=== PATIENT | male | born 1990 | race African-American/Black ===

== ENCOUNTER 2017-03-06 13:02 | Inpatient (IN) ==
--- NOTE | 2017-03-06 13:56 | Emergency Department Note ---
Denis Falk Mantricia, am scribing for, and in the presence of, Bolivar Cespedes MD 13:49. Rubina Falk James D, MD, personally performed the services described in this documentation, ascribed by Aiyana Barrios in my presence, and it is both accurate and complete [id number] . Arrival - Arrival Chief Complaint: Non-Specific Stated Complaint: kidneys. sent by dr. ED Nursing Triage Note: pt states was sent by a clinic to the er for "his kidneys" pt is unable to tell me what clinic or what is wrong with kidneys. pt [facility] yesterday adn given bp meds Mode of Arrival: Ambulatory Limitations: No Limitations Source: Patient Time Seen by Provider: 03/06/17 13:41 - History of Present Illness HPI Narrative: Pt is a 26 y/o black male arriving to ED unsure as to what his complaint is. He states that he was seen at [facility] yesterday and blood work was taken. He states that he got a call from the nurse practitioner telling him to come to ED because "something was up with his kidneys." Onset (ago): hour(s) Allergies/Adverse Reactions: Allergies Allergy/AdvReac Type Severity Reaction Status Date / Time No Known Allergies Allergy Unverified 03/06/17 13:30 Home Medications: Home Medications Medication Instructions Recorded Confirmed Type Aspirin EC Tab 81 mg PO DAILY 03/06/17 03/06/17 History amLODIPine [Norvasc] 5 mg PO QAM 03/06/17 03/06/17 History hydroCHLOROthiazide 12.5 mg PO QAM 03/06/17 03/06/17 History [Hydrochlorothiazide] Review of System - Review of System ROS unobtainable: other (referred here but unsure why) Medical,Surgical,& Family Hx - Medical History Cardio: History of: Hypertension - Social History Smoking Status: Never smoker Frequency of Alcohol Use: None Type of Drug Use: None Exam Physical Examination: GENERAL: This is a well-nourished, well-developed male in no apparent distress. VITAL SIGNS: HEENT: Head is normocephalic and atraumatic. Pupils are equally round and reactive to light. Extraocular movement are intact. Oropharynx is benign with moist mucous membranes. NECK: Neck is soft and supple without tenderness. There are no masses. There is no lymphadenopathy. LUNGS: Lungs are clear to auscultation bilaterally. Chest rises symmetrically. There is no chest wall tenderness. CV: Heart is regular rate and rhythm without murmurs, rubs, or gallops. ABDOMEN: Abdomen is soft, non-tender to palpation. There are no abnormal masses palpated. There is no organomegaly. Bowel sounds are present and active. SKIN: Skin is warm and dry. No rash. EXTREMITIES: Patient has full range of motion without tenderness. There is no pedal edema. NEUROLOGIC: Awake, alert, and oriented x4. Cranial nerves II through XII are grossly intact. There are no motorsensory deficits. PSYCHIATRIC: Normal affect. Normal mood. Vital Signs: Vital Signs Temperature 98.5 F 03/06/17 13:42 Pulse Rate 91 H 03/06/17 15:17 Respiratory Rate 28 H 03/06/17 15:17 Blood Pressure 185/133 03/06/17 15:17 O2 Sat by Pulse Oximetry 100 03/06/17 15:17 Course - Consultations Consultation #1: Discussed with hospitalist. Patient will be admitted to their service. Time: 14:59 Results - Labs CBC & BMP: 03/06/17 13:48 03/06/17 13:48 Lab Results: I have reviewed the patients labs - EKG EKG results: interpreted by ERMD - Impressions EKG: Normal sinus rhythm with rate of 84, nonspecific ST-T wave changes. - Diagnostic Findings Procedure: Chest x-ray: image reviewed by me, Ultrasound: report reviewed by me (No evidence of hydronephrosis. Bilateral medical renal disease.) Disposition Clinical Impression: Essential (primary) hypertension, Hyponatremia, Acute renal failure Case discussed with: patient, patient's family Disposition: Still a Patient Condition: Stable Time of Disposition: 13:56
[2017-03-06 14:10] LABS: Apearance,Urine Slightly Hazy (Clear); Bacteria,Urine Occasional /HPF (Few); Bilirubin,Urine Negative (Negative); Blood, Urine Moderate mg/dL (Negative); Glucose,Urine (UA) Negative (Negative); Ketones,Urine Negative (Negative); Mucus,Urine Occasional /LPF (Occasional); Nitrite,Urine Negative (Negative); Protein,Urine 100 MG/DL; RBC,Urine 1 /HPF (0-4); Squamous Epithelial Cell,Urine Occasional /HPF (0-10); Urine Color Yellow (Yellow); Urine Specific Gravity 1.011 (1.001-1.035); Urine Urobilinogen < 2.0 EU/DL (0.2-1.0); WBC,Urine 1 /HPF (0-6)
[2017-03-06 14:20] LABS: Basophils # 0.1 10*3/uL (0.0-0.2); Basophils % 0.4 % (0.0-0.8); Eosinophils # 0.1 10*3/uL (0.0-0.87); Eosinophils % 0.3 % (0.00-10.9); Hemoglobin 14.4 GM/DL (14.0-18.0); Immature Granulocytes % 1.7 %; Lymphocytes % 8.3 % (21.2-54.2); Mean Corpuscular HGB Conc 37.3 GM/DL (32-36); Mean Corpuscular Hemoglobin 28 PG (27-34); Mean Corpuscular Volume 73.8 FL (87-102); Monocytes # 2.3 10*3/uL (0.11-0.8); Monocytes % 6.4 % (1.7-12.7); Neutrophils % 82.9 % (38.7-73.9); Platelet Count 201 T/CUMM (130-400); Red Blood Count 5.23 MC/CUMM (3.8-5.5); Red Cell Distribution Width 14.9 % (9.3-17.3); White Blood Count 36.2 T/CUMM (4-12)
[2017-03-06 14:21] LABS: Hematocrit 38.6 VOL% (42.0-52.0)
[2017-03-06 14:24] LABS: Anisocytosis 1+; Burr Cells Few; Lymphocytes 6 % (20-55); Microcytosis 1+; Ovalocytes Few; Platelet Estimate Adequate; Poikilocytosis 1+; Polychromasia Slight; Segmented Neutrophils 88 % (50-85); Total Cells Counted 100
[2017-03-06 14:29] LABS: Osmolality,Calculated 285.4 MOS/KG (273-304); Potassium 2.6 MMOL/L (3.5-5.1)
[2017-03-06 14:30] LABS: Calcium 5.8 MG/DL (8.5-10.1)
--- NOTE | 2017-03-06 14:42 | Ultrasound Report ---
Exam: US renal Bilateral Date: 03/06/2017 1:52 PM Indication: Chronic renal failure Comparison: None Findings: Right kidney. 8.4 x 3.1 x 5.8 cm. No hydronephrosis or perinephric fluid collection with mild increased echogenicity present. Normal color flow Left kidney. 8.9 x 4.5 x 5 cm. No hydronephrosis perinephric fluid collections with mild increased echogenicity with normal color flow Impression: 1. Medical renal disease present bilaterally with increased echogenicity without obstruction or stones Ultrasound images were stored and captured PROCEDURE INTERPRETED AT [facility] DEPARTMENT OF RADIOLOGY Final Report Signed by: Dr. González De La Rosa
[2017-03-06 14:57] LABS: Alanine Aminotransferase 23 U/L (16-61); Albumin 2.5 G/DL (3.4-5.0); Alkaline Phosphatase 74 U/L (45-117); Aspartate Amino Transferase 23 U/L (0-37); Bilirubin,Total < 0.39 MG/DL (0.2-1.0); Blood Urea Nitrogen 102 MG/DL (7-18); Calcium 5.9 MG/DL (8.5-10.1); Glucose 112 MG/DL (74-106); Osmolality,Calculated 283.5 MOS/KG (273-304); Potassium 2.6 MMOL/L (3.5-5.1); Sodium 125 MMOL/L (136-145); Total Protein 5.4 G/DL (6.4-8.3)
[2017-03-06] MEDS ORDERED: METOPROLOL TARTRATE 5 MG/5 ML VIAL IV STA ×3 (14:58→15:53)
--- NOTE | 2017-03-06 15:32 | EKG Report ---
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
[2017-03-06] MEDS ORDERED: METOPROLOL TARTRATE 5 MG/5 ML VIAL IV ONE ×2 (15:38→15:56)
--- NOTE | 2017-03-06 16:00 | Hospitalist History & Physical ---
<Stephani Garciada - Last Filed: 03/06/17 15:44> Assessment and Plan (1) Leukocytosis Status: Acute Assessment and plan: WBCs were grossly elevated at 36.2. There is no obvious sign of infection. We will conduct a full workup, we will obtain hepatitis panel and HIV panel for review. We will obtain blood cultures Current Visit: Yes (2) Acute renal failure Status: Acute Assessment and plan: Gross elevation in BUN and creatinine noted at the time of encounter. BUN noted at 102 and creatinine noted at 14.40. We will consult nephrology to evaluate. Current Visit: Yes (3) Essential (primary) hypertension Status: Acute Assessment and plan: Patient reports noncompliance with previous antihypertensive regimen. Spoke with patient in great detail regarding the need to adhere to the prescribed medication regimen. He acknowledges a understanding of the need and reports that he plans to be compliant in the future. Current Visit: Yes (4) Hyponatremia Status: Acute Assessment and plan: Sodium noted at 125, we will consult nephrology to evaluate for correction. Current Visit: Yes History of Present Illness Chief complaint: Abnormal labs History of present illness: This is a very unfortunate 26-year-old male that presented to the ED at [facility] for the evaluation of abnormal labs. The patient has a history of hypertension. The patient reports no significant surgical history. The patient reports that he was seen yesterday at a local clinic here in [place] for the evaluation of hypertension. The patient has a history of hypertension however reports that he has not taken meds in over 3 years. He reports that his medications were not discontinued by his physician but he stopped his medications because he felt better. He sought medical attention on yesterday because he had been "not feeling well". He was seen there on yesterday and labs were obtained. On this morning, he was contacted by the clinic staff and told that he needed to report to the ED immediately due to the discrepancies in his labs. At the time of ED presentation. The patient was noted to be grossly hypertensive with a blood pressure noted at 185/133. He was medicated at that time and his blood pressure responded minimally his systolic blood pressure remained above 180. Labs were obtained which reported white blood cell count at 36.2, hemoglobin 14.4, hematocrit 38.6, and platelet count of 201. Chemistry profile was obtained which reported his sodium at 125, potassium is 2.6, chloride at 83, CO2 18, BUN at 102, creatinine at 14.40, calcium of 5.9, total protein of 5.4, albumin at 2.5, and glucose at 112. After brief discussion with both Dr. Cespedes and Dr. Butts, patient will be admitted to the hospitalist services for continuation of care. Due to the severity of the the patient's renal function, we will consult nephrology to evaluate. Home Medications Medication Instructions Recorded Confirmed Type Aspirin EC Tab 81 mg PO DAILY 03/06/17 03/06/17 History amLODIPine [Norvasc] 5 mg PO QAM 03/06/17 03/06/17 History hydroCHLOROthiazide 12.5 mg PO QAM 03/06/17 03/06/17 History [Hydrochlorothiazide] Allergies Allergy/AdvReac Type Severity Reaction Status Date / Time No Known Allergies Allergy Unverified 03/06/17 13:30 Medical,Surgical,& Family Hx - Medical History Cardio: History of: Hypertension - Social History Smoking Status: Never smoker Frequency of Alcohol Use: None Type of Drug Use: None 12 point system: reviewed and no additional remarkable complaints except as stated Exam - Constitutional Vitals: Period Temp Pulse Resp BP Sys/Caldwell Pulse Ox Last 24 Hr 98.5 F-98.5 F 91-101 18-28 170-188/114-138 97-100 General appearance: normal weight, no acute distress - Head Head exam: Present: normal inspection, normocephalic, atraumatic - Eye Eye exam: Present: EOMI. Absent: conjunctival injection Pupils: Present: ANKITA, normal accommodation - ENT ENT exam: Present: normal exam, normal external ear exam, normal oropharynx - Neck Neck exam: Present: normal inspection. Absent: lymphadenopathy, meningismus, tenderness, thyromegaly - Respiratory Respiratory exam: Present: clear to auscultation bilaterally. Absent: rales, rhonchi, stridor, wheezes - Cardiovascular Cardiovascular exam: Present: bradycardia, regular rate and rhythm. Absent: carotid bruit, diastolic murmur, gallop, JVD, systolic murmur, tachycardia - GI/Abdominal GI/Abdominal exam: Present: normal bowel sounds, soft - Extremities Exam Extremities exam: Present: normal inspection, normal capillary refill, full ROM , edema - Back Exam Back exam: Present: normal inspection - Neurological Exam Neurological exam: Present: alert, oriented X3, CN II-XII intact - Psychiatric Psychiatric exam: Present: normal affect, normal mood - Skin Skin exam: Present: normal color, warm, dry Results - Labs CBC & BMP: 03/06/17 13:48 03/06/17 13:48 <Paula Butts - Last Filed: 03/06/17 18:54> History of Present Illness History of present illness: Patient has been seen and examined. I have reviewed the H&P by SHANIKA Garcia, and I agree with the information. Chart reviewed. Active Issues: 1. Hypertensive crises: BP is elevated. He states that he stopped taking lisinopril in 2012. He has MICHAEL, which is multifactorial. Plan is to control blood pressure. Will also obtain TSH and UDS. 2. Leukocytosis: afebrile. So far, there is no source of infection. UA/c-xray are unremarkable. Suspect leukocytosis is from stress reaction from mild volume depletion given recent n/v. Will monitor for now. 3. MICHAEL: multifactorial to include uncontrolled HTN, volume depletion, and NSAID use. Renal ultrasound showed medical renal disease. Nephrology has been consulted. Will obtain urine lytes. Will give gentle fluids. Monitor. 4. Hyponatremia: could be 2nd to volume depletion. Obtain lytes. Gentle fluids. 5. HypoK: will monitor for now 6. Abdominal pain: Patient had periumbilical pain with n/v for the past 3 days. Currently, it has resolved. Will obtain abdominal us and lipase. 7. Cardiomegaly on chest x-ray: obtain echo Exam - Constitutional Vitals: Period Temp Pulse Resp BP Sys/Caldwell Pulse Ox Last 24 Hr 98.5 F-98.5 F 79-101 18-28 162-188/113-138 97-100 Results - Labs CBC & BMP: 03/06/17 13:48 03/06/17 13:48
--- NOTE | 2017-03-06 16:01 | XRay Report ---
Exam: Chest 2 views Date: March 06, 2017 at 3:37 PM Comparison: None Reason: Shortness of breath, acute renal failure, hypertension Findings: The cardiac silhouette is upper normal in size. No focal consolidation, pneumothorax or pleural effusion is identified. No acute osseous process is seen. Impression: 1. The heart is upper normal in size. 2. No acute pulmonary process is identified. PROCEDURE INTERPRETED AT [facility] DEPARTMENT OF RADIOLOGY Final Report Signed by: Dr. Yudi Figueroa
[2017-03-06] MEDS ORDERED: SODIUM CHLORIDE 0.9% 1,000 ML IV SCH (16:34)
[2017-03-06] MEDS ORDERED: hydrALAZINE 20 MG/1 ML VIAL IV PRN ×2 (16:34→18:37)
[2017-03-06] MEDS ORDERED: amLODIPine 10 MG TABLET PO SCH (16:34)
[2017-03-06] MEDS ORDERED: ONDANSETRON 4 MG/2 ML VIAL IV PRN (16:34)
[2017-03-06] MEDS ORDERED: ACETAMINOPHEN 325 MG TABLET PO PRN (16:34)
[2017-03-06] MEDS ORDERED: hydrALAZINE 20 MG/1 ML VIAL ONE (16:40)
[2017-03-06 16:59] LABS: Risk Ratio 4.71; VLDL CHOLESTEROL 57.8 MG/DL
[2017-03-06 17:41] LABS: Hepatitis A Ab IgM Quant 0.08 Index; Hepatitis A Ab IgM Result Negative (Negative); Hepatitis B Core IgM Quant 0.17 Index; Hepatitis B Core IgM Result Negative (Negative); Hepatitis B Surface Ag Quant < 0.10 Index; Hepatitis B Surface Ag Result Negative (Negative); Hepatitis C Virus Ab Quant < 0.02 Index; Hepatitis C Virus Ab Result Negative (Negative)
[2017-03-06] MEDS ORDERED: POTASSIUM CHLORIDE 20 MEQ TABLET PO ONE (18:00)
[2017-03-06 18:42] LABS: Barbiturates Screen,Urine Negative (Negative); Benzodiazepines Screen,Urine Negative (Negative); Cannabinoid Screen,Urine Negative (Negative); Opiate Screen,Urine Negative (Negative); Phencyclidine Screen,Urine Negative (Negative)
[2017-03-06] MEDS: ACETAMINOPHEN 325 MG TABLET PO PRN (19:39)
[2017-03-06 20:44] LABS: HIV Antigen/Antibody Result Nonreactive (Nonreactive)
[2017-03-06 22:06] LABS: Amorphous Crystals,Urine Occasional /HPF (Few); Apearance,Urine Slightly Hazy (Clear); Bacteria,Urine Occasional /HPF (Few); Bilirubin,Urine Negative (Negative); Blood, Urine Moderate mg/dL (Negative); Glucose,Urine (UA) Negative (Negative); Ketones,Urine Negative (Negative); Mucus,Urine Occasional /LPF (Occasional); Nitrite,Urine Negative (Negative); Protein,Urine 100 MG/DL; RBC,Urine 3 /HPF (0-4); Squamous Epithelial Cell,Urine Occasional /HPF (0-10); Urine Color Straw (Yellow); Urine Specific Gravity 1.008 (1.001-1.035); Urine Urobilinogen < 2.0 EU/DL (0.2-1.0); WBC,Urine 2 /HPF (0-6)
[2017-03-07 02:59] LABS: Basophils # 0.1 10*3/uL (0.0-0.2); Basophils % 0.3 % (0.0-0.8); Eosinophils # 0.2 10*3/uL (0.0-0.87); Eosinophils % 0.6 % (0.00-10.9); Hematocrit 32.5 VOL% (42.0-52.0); Hemoglobin 11.9 GM/DL (14.0-18.0); Immature Granulocytes % 1.1 %; Immature Granulocytes Absolute 0.29 #; Lymphocytes # 3.1 10*3/uL (1.4-4.0); Lymphocytes % 11.9 % (21.2-54.2); Mean Corpuscular HGB Conc 36.6 GM/DL (32-36); Mean Corpuscular Hemoglobin 27 PG (27-34); Monocytes # 2.2 10*3/uL (0.11-0.8); Monocytes % 8.4 % (1.7-12.7); Neutrophils % 77.7 % (38.7-73.9); Platelet Count 172 T/CUMM (130-400); Red Blood Count 4.39 MC/CUMM (3.8-5.5); Red Cell Distribution Width 15.1 % (9.3-17.3); White Blood Count 25.7 T/CUMM (4-12)
[2017-03-07 03:27] LABS: Albumin 2.1 G/DL (3.4-5.0); Bilirubin,Total 0.5 MG/DL (0.2-1.0); Magnesium 1.7 MG/DL (1.8-2.4); Osmolality,Calculated 288.1 MOS/KG (273-304); Potassium 2.6 MMOL/L (3.5-5.1); Total Protein 4.6 G/DL (6.4-8.3)
[2017-03-07 03:35] LABS: Calcium 5.6 MG/DL (8.5-10.1)
[2017-03-07 03:51] LABS: Anisocytosis 1+; Band Neutrophils 5 % (0-10); Lymphocytes 11 % (20-55); Platelet Estimate Normal; Segmented Neutrophils 81 % (50-85); Total Cells Counted 100
[2017-03-07] MEDS: ASPIRIN EC 81 MG TABLET PO SCH ×2 (08:17→09:30)
[2017-03-07] MEDS: PANTOPRAZOLE 40 MG TABLET PO SCH ×2 (08:17→09:30)
--- NOTE | 2017-03-07 09:21 | Ultrasound Report ---
Exam: US abdomen Date: 03/07/2017 12:00 AM Comparison: 03/06/2017 Indication: Abdominal distention Technique:[Multiple transabdominal real-time scans were obtained of the abdomen. Color flow scans obtained. Ultrasound images were captured and stored.] Findings: No gallbladder pathology identified. CBD is normal in size measuring 3 mm. The liver is normal in size with fatty infiltration. No liver masses are identified. The spleen is normal in size. Right kidney measures 95 mm in length. Left kidney measures 85 mm in length with no mass or hydronephrosis. The visualized pancreas and aorta have an unremarkable appearance with color flow documented in the IVC and portal vein. The aortic bifurcation is obscured by bowel gas. At least minimal ascites. Impression: No gallbladder pathology identified. Fatty infiltration of the liver. Cortical scarring in the kidneys. At least minimal ascites. The Ultrasound images were captured and stored. PROCEDURE INTERPRETED AT [facility] DEPARTMENT OF RADIOLOGY Final Report Signed by: Dr. Elisha De La Garza
[2017-03-07] MEDS: amLODIPine 5 MG TABLET PO SCH ×2 (09:30→20:18)
--- NOTE | 2017-03-07 11:28 | Hospitalist Progress Note ---
<Irineo Garcia - Last Filed: 03/07/17 11:25> Assessment and Plan (1) Leukocytosis Status: Acute Assessment and plan: WBCs were grossly elevated at 36.2. There is no obvious sign of infection. We will conduct a full workup, we will obtain hepatitis panel and HIV panel for review. We will obtain blood cultures 03/07-noted decrease in WBCs, white blood cell count noted at 25.7. No obvious sign of infection identified. Hepatitis screen and HIV panel both negative. Blood cultures and urine culture report no growth to date. This leukocytosis may be related to stress; however we will continue to monitor. Current Visit: Yes (2) Acute renal failure Status: Acute Assessment and plan: Gross elevation in BUN and creatinine noted at the time of encounter. BUN noted at 102 and creatinine noted at 14.40. We will consult nephrology to evaluate. 03/07-BUN and creatinine remain elevated at 106 and 13.7. We attempted to gently rehydrate on last night with no success. No signs or symptoms of uremia present. Multiple electrolyte deficits are noted: Sodium at 128 today potassium at 2.6 , chloride at 88 , anion gap at 23.6, carbon dioxide at 19; magnesium noted at 1.7, calcium noted at 5.6, GFR is noted at 6. I contacted nephrology spoke with Dr. Cabello; he is agreed to evaluate the patient this afternoon. We will monitor for signs and symptoms of uremia. Patient is in no obvious distress. We will obtain arterial blood gas to assess current acid base balance. We will await nephrology consultation for further direction. Current Visit: Yes (3) Essential (primary) hypertension Status: Acute Assessment and plan: Patient reports noncompliance with previous antihypertensive regimen. Spoke with patient in great detail regarding the need to adhere to the prescribed medication regimen. He acknowledges a understanding of the need and reports that he plans to be compliant in the future. 03/07-blood pressures remain relatively elevated. Systolic blood pressure has remained above 160. We will start hydralazine 50 mg 3 times daily and Coreg 25 mg twice daily. We will continue to monitor blood pressures very closely. I suspect that it would be very difficult to control this patient's blood pressures. Current Visit: Yes (4) Hyponatremia Status: Acute Assessment and plan: Sodium noted at 125, we will consult nephrology to evaluate for correction. 03/07-sodium remains low at 128; awaiting nephrology consultation for further direction. Current Visit: Yes (5) Hypokalemia Status: Acute Assessment and plan: Potassium remains low noted at 2.6 at the time of admission remains at 2.6 today. Awaiting nephrology consultation to evaluate and adjust. Current Visit: Yes Hospitalist: Subjective Interval history: Patient seen and examined; no significant overnight events. Further decline in renal status noted, BUN noted at 106 creatinine noted at 1.370; awaiting nephrology consult. Exam - Constitutional Vitals: Period Temp Pulse Resp BP Sys/Caldwell Pulse Ox Last 24 Hr 97.9 F-98.5 F 79-104 16-28 147-188/86-138 97-100 General appearance: normal weight, no acute distress - Head Head exam: Present: normal inspection, normocephalic - Eye Eye exam: Present: EOMI, conjunctival injection Pupils: Present: ANKITA, normal accommodation - ENT ENT exam: Present: normal exam, normal external ear exam, normal oropharynx - Neck Neck exam: Present: normal inspection. Absent: lymphadenopathy, meningismus, tenderness, thyromegaly - Respiratory Respiratory exam: Present: clear to auscultation bilaterally. Absent: rales, rhonchi, stridor, wheezes - Cardiovascular Cardiovascular exam: Present: regular rate and rhythm. Absent: carotid bruit, diastolic murmur, gallop, JVD, rubs, systolic murmur - GI/Abdominal GI/Abdominal exam: Present: normal bowel sounds, soft - Extremities Exam Extremities exam: Present: normal inspection, normal capillary refill, full ROM. Absent: edema - Back Exam Back exam: Present: normal inspection - Neurological Exam Neurological exam: Present: alert, oriented X3, CN II-XII intact - Psychiatric Psychiatric exam: Present: normal affect. Absent: flat affect - Skin Skin exam: Present: normal color, warm, dry Results - Labs CBC & BMP: 03/07/17 02:22 03/07/17 02:22 Lab Results: I have reviewed the past 24 hour labs <Chelly Longoria - Last Filed: 03/07/17 14:12> Hospitalist: Subjective Interval history: We appreciate Nephrology's input and we will monitor bp closely. Exam - Constitutional Vitals: Period Temp Pulse Resp BP Sys/Caldwell Pulse Ox Last 24 Hr 97.9 F-98.3 F 79-104 16-28 147-188/86-133 97-100 Results - Labs CBC & BMP: 03/07/17 02:22 03/07/17 02:22
[2017-03-07 12:29] LABS: ABG Base Excess -7.9 MMOL/L (-2.5-2.5); ABG Oxygen Saturation 95.7 % (95-100); ABG PH 7.378 (7.35-7.45); ABG PO2 88.4 MM HG (80-95); ABG TCO2 14.1 MMOL/L (23-27); Allen Test Positive; Pt O2 Delivery Device Room Air
[2017-03-07] MEDS ORDERED: cloNIDine 0.1 MG TABLET PO PRN (13:40)
--- NOTE | 2017-03-07 13:45 | Nephrology Consult Note ---
History of Present Illness Chief complaint: ESRD History of present illness: Mr. Dunn is a 26 year old male with a history of hypertension for which he took medicines. He stopped them however after running out of them and says he has not taken them for over a year. He recalls 1 of them being a lisinopril. He says that he has had no vomiting and has felt fairly well but has had some anorexia over the last several days. He has noticed no decrease in his urine output. He has no dyspnea on exertion and no shortness of breath. Family history is negative for kidney disease and there are no family members who are on dialysis. Laboratory review reveals 2+ proteinuria and an anemia with a hematocrit of approximately 28%. Renal ultrasound shows small-nakul kidneys that 8-1/2 cm with no evidence of hydronephrosis. Chest x-ray without volume overload. Impression advanced renal failure essentially at end-stage renal disease but relatively free of uremic symptoms # 2 anemia due to renal impairment #3 severe hypertension #4 hypokalemia likely related to his accelerated phase hypertension Our plan is to further control his blood pressure and began hemodialysis which will help significantly in correcting his metabolic derangement. We discussed all this and have contacted surgery regarding dialysis catheter placement tomorrow. After catheter placement will begin dialysis Home Medications Medication Instructions Recorded Confirmed Type Aspirin EC Tab 81 mg PO DAILY 03/06/17 03/07/17 History amLODIPine [Norvasc] 5 mg PO QAM 03/06/17 03/07/17 History hydroCHLOROthiazide 12.5 mg PO QAM 03/06/17 03/07/17 History [Hydrochlorothiazide] Allergies Allergy/AdvReac Type Severity Reaction Status Date / Time No Known Allergies Allergy Unverified 03/06/17 13:30 Medical,Surgical,& Family Hx - Medical History Cardio: History of: Hypertension - Family History Family History: Reports;: Family Diabetes (mom), Family Hypertension (mom) - Social History Smoking Status: Never smoker Frequency of Alcohol Use: None Type of Drug Use: None Review of Systems 12 point system: reviewed and no additional remarkable complaints except as stated Exam - Vital Signs Vital signs: Period Temp Pulse Resp BP Sys/Caldwell Pulse Ox Last 24 Hr 97.9 F-98.3 F 79-104 16-28 147-188/86-133 97-100 - General Appearance General appearance: well-developed, well-nourished, appears started age Neck: no JVD, no thyromegaly, no carotid bruit, supple Respiratory: no kyphosis, no scoliosis Cardiology: no murmurs, no rub, no gallops, no edema, regular rate, regular rhythm, normal S1, normal S2 Gastrointestinal: normoactive bowel sounds Integumentary: no rash, warm and dry Neurologic: no focal deficit, no asterixis, alert and oriented x3, reflexes 2+ and symmetric, gait normal, strength 5/5 Musculoskeletal: no deformities, no erythema, no cyanosis, no clubbing Psychiatric: mood/affect appropriate, cooperative Results - Labs CBC & BMP: 03/07/17 02:22 03/07/17 02:22 Assessment and Plan (1) CKD (chronic kidney disease) stage 5, GFR less than 15 ml/min Status: Acute Assessment and plan: Dialysis catheter placement, then begin hemodialysis Current Visit: Yes (2) Hypertension, accelerated Status: Acute Assessment and plan: Add Clonidine prn Current Visit: Yes (3) Anemia Status: Acute Assessment and plan: Likely due to CKD Current Visit: Yes Specialty Discharge - Follow Up or Referrals - Speciality Discharge Instructions Nephrology Instructions: BP control, Dialysis, Not sure how much if any is reversable with his small kidneys
[2017-03-07] MEDS: ATORVASTATIN 10 MG TABLET PO SCH (14:43)
--- NOTE | 2017-03-07 17:43 | ECHO Report ---
Favio Dunn Exam Date: 03/07/2017 10:10 Referring Physician: Technologist: Fara Quijano Age: 26 Ht (in): 69 Wt (lb): 214 Gender: M Exam Location: [facility] Echo Indications: HTN, Leukocytosis, acute renal failure BP: 165 / 110 HR: 84 Rhythm: Sinus Technical Quality: IMPRESSIONS 1. Left ventricle is normal size and systolic function ejection fraction 55 6%. There is at least mild concentric left ventricular hypertrophy. 2. There is mild left atrial dilation. 3. The right sided cardiac chambers are normal size. 4. Valvular structures are anatomically function normal. MEASUREMENTS (Male / Female) Normal Values 2D ECHO LV Diastolic Diameter PLAX 5.2 cm 4.2 - 5.9 / 3.9 - 5.3 cm LV Systolic Diameter PLAX 3.3 cm LV Fractional Shortening PLAX 36.3 % IVS Diastolic Thickness 1.3 cm 0.6 - 1.0 / 0.6 - 0.9 cm LVPW Diastolic Thickness 1.4 cm 0.6 - 1.0 / 0.6 - 0.9 cm RV Internal Dim ED PLAX 1.7 cm Aortic Root Diameter 3.0 cm LA Systolic Diameter LX 4.5 cm 3.0 - 4.0 / 2.7 - 3.8 cm FINDINGS Left Ventricle Left ventricle is normal size and systolic function. Ejection fraction is 55-60%. There is no segmental wall motion normality's. There is at least mild concentric left ventricular hypertrophy. Right Ventricle Normal right ventricular size. Right Atrium Normal right atrial size. Left Atrium Mildly increased left atrial diameter. Mitral Valve Mitral valve is anatomically function normal. There is no Doppler abnormalities. Aortic Valve Aortic valve the tricuspid structure with normal motion. There is no stenosis or insufficiency. Tricuspid Valve Morphologically normal tricuspid valve. Pulmonic Valve Morphologically normal pulmonic valve. Pericardium No pericardial effusion. Aorta Normal size aortic root and proximal ascending aorta. Ronaldo Sales MD (Electronically Signed) Final Date: 07 March 2017 17:42
[2017-03-07] MEDS ORDERED: CALCIUM GLUCONATE 1,000 MG in SODIUM CHLORIDE 0.9% 100 ML IV ONE (18:13)
[2017-03-07] MEDS: CALCIUM CARBONATE CHEW 500 MG TABLET PO SCH ×2 (18:53→20:17)
[2017-03-07] MEDS: ALPRAZolam 0.5 MG TABLET PO SCH (20:17)
[2017-03-07] MEDS: CARVEDILOL 25 MG TABLET PO SCH (20:18)
[2017-03-07] MEDS ORDERED: POTASSIUM CHLORIDE 20 MEQ TABLET PO ONE (21:00)
[2017-03-08] MEDS ORDERED: POTASSIUM CHLORIDE RIDER 10 MEQ in PREMIX 1 EACH IV ONE (02:30)
[2017-03-08] MEDS ORDERED: CALCIUM GLUCONATE 1,000 MG in SODIUM CHLORIDE 0.9% 100 ML IV ONE (03:30)
[2017-03-08 05:49] LABS: Calcium 6.7 MG/DL (8.5-10.1); Magnesium 1.9 MG/DL (1.8-2.4); Osmolality,Calculated 292.1 MOS/KG (273-304); Potassium 2.6 MMOL/L (3.5-5.1)
[2017-03-08 05:50] LABS: Basophils # 0.1 10*3/uL (0.0-0.2); Basophils % 0.2 % (0.0-0.8); Eosinophils # 0.2 10*3/uL (0.0-0.87); Eosinophils % 0.9 % (0.00-10.9); Hematocrit 26.2 VOL% (42.0-52.0); Immature Granulocytes % 0.6 %; Immature Granulocytes Absolute 0.13 #; Lymphocytes # 1.7 10*3/uL (1.4-4.0); Lymphocytes % 8.3 % (21.2-54.2); Mean Corpuscular HGB Conc 37.4 GM/DL (32-36); Mean Corpuscular Hemoglobin 28 PG (27-34); Mean Corpuscular Volume 74.2 FL (87-102); Mean Platelet Volume 11.6 FL (9.6-12.0); Monocytes # 1.8 10*3/uL (0.11-0.8); Monocytes % 8.4 % (1.7-12.7); NRBC # 0.02 10*3/uL; Neutrophils % 81.6 % (38.7-73.9); Platelet Count 180 T/CUMM (130-400); Red Blood Count 3.53 MC/CUMM (3.8-5.5); Red Cell Distribution Width 14.8 % (9.3-17.3); White Blood Count 20.8 T/CUMM (4-12)
[2017-03-08 05:55] LABS: Hemoglobin 9.8 GM/DL (14.0-18.0)
[2017-03-08 06:15] LABS: Acanthocytes Few; Hypochromasia 1+; Ovalocytes Slight
[2017-03-08 06:16] LABS: Platelet Estimate Adequate
[2017-03-08 06:17] LABS: Lymphocytes 5 % (20-55); Microcytosis 1+; Segmented Neutrophils 89 % (50-85); Total Cells Counted 100
[2017-03-08] MEDS: CALCIUM CARBONATE CHEW 500 MG TABLET PO SCH ×4 (08:40→20:26)
[2017-03-08] MEDS: ASPIRIN EC 81 MG TABLET PO SCH (08:40)
[2017-03-08] MEDS: ATORVASTATIN 10 MG TABLET PO SCH (08:40)
[2017-03-08] MEDS: CARVEDILOL 25 MG TABLET PO SCH ×2 (08:40→20:26)
[2017-03-08] MEDS: amLODIPine 5 MG TABLET PO SCH ×2 (08:40→20:26)
[2017-03-08] MEDS: PANTOPRAZOLE 40 MG TABLET PO SCH (08:41)
--- NOTE | 2017-03-08 08:41 | Nephrology Progress Note ---
Nephrology - PN: Subj Interval history: Mr. Dunn is seen in follow-up of his renal failure. His creatinine is little better at 13.3. Potassium is 2.6 and calcium is improved. He will need dialysis before many of these metabolic problems correct and hopefully we can proceed to the catheter placement today as planned. We will give further IV IV potassium. Chest is clear and he is able to lie flat and is in no distress. Exam (PN)-Nephrology - Vital Signs Vital signs: Period Temp Pulse Resp BP Sys/Caldwell Pulse Ox Last 24 Hr 97.8 F-99.4 F 79-107 16-20 112-185/55-118 94-99 - Lab 03/08/17 04:23 03/08/17 04:23 Most recent lab results ABG pH 7.378 (7.35-7.45) 03/07/17 11:47 ABG pCO2 27.0 MM HG (35-48) L 03/07/17 11:47 ABG pO2 88.4 MM HG (80-95) 03/07/17 11:47 ABG HCO3 18.0 MMOL/L (20-26) L 03/07/17 11:47 ABG O2 Saturation 95.7 % (95-100) 03/07/17 11:47 Calcium 6.7 MG/DL (8.5-10.1) L 03/08/17 04:23 Phosphorus 11.7 MG/DL (2.5-4.9) H 03/07/17 02:19 Magnesium 1.9 MG/DL (1.8-2.4) 03/08/17 04:23 Assessment and Plan (1) CKD (chronic kidney disease) stage 5, GFR less than 15 ml/min Status: Acute Assessment and plan: Dialysis catheter placement, then begin hemodialysis Current Visit: Yes (2) Hypertension, accelerated Status: Acute Assessment and plan: Add Clonidine prn Current Visit: Yes (3) Anemia Status: Acute Assessment and plan: Likely due to CKD Current Visit: Yes
--- NOTE | 2017-03-08 08:55 | Physician Query Form ---
CLICK EDIT DOCUMENT TO SELECT QUERY ANSWER --> OK --> SIGN Meredith Loyd RN Clinical Electron Microprobe Operator W) [phone] (f) [phone] [email or web address] PROVIDERS: Make your selection(s) from the choices in EACH section by typing an "x" and enter comments in the comment section. Please use your independent medical judgment in providing your response. This request does not imply that any particular answer is desired or expected. CLINCAL INDICATORS: (Providers should not edit this section) Based on documentation of "Hypertensive crises". BP of 170/124 on admission. Pt. treated with IV Hydralazine. Note: Hypertensive crises can present as hypertensive urgency or hypertensive emergency. Clarify which, if any of the following, is a more accurate diagnosis reflecting the type and acuity of the documented hypertension: TYPE: (x ) Hypertensive Urgency ( ) Hypertensive Emergency ( ) Uncontrolled chronic hypertension at baseline ( ) Other, please specify: ( ) Clinically unable to determine COMMENTS: Criteria Source - Up to Date (This topic last updated: Nov 24, 2015) HYPERTENSIVE URGENCY: Severe hypertension (usually a diastolic blood pressure above 120 mmHg) in asymptomatic patients is referred to as hypertensive urgency. There is no proven benefit from rapid reduction in blood pressure in asymptomatic patients who have no evidence of acute end-organ damage and are at little short-term risk. HYPERTENSIVE EMERGENCY: Severe hypertension (usually a diastolic blood pressure above 120 mmHg) with evidence of acute end-organ damage is defined as a hypertensive emergency. A hypertensive emergency can be life threatening and requires immediate treatment, usually with parenteral medications in a monitored setting. PLEASE ALSO DOCUMENT RESPONSE IN PROGRESS NOTES AND/OR DISCHARGE SUMMARY Use of terms such as suspected, likely, or probable (associated with a specific diagnosis that is being evaluated, monitored, or treated as if it exists) are acceptable and can be restated in the discharge summary if not ruled out. MTDD
[2017-03-08] MEDS: POTASSIUM CHLORIDE RIDER 10 MEQ in PREMIX 1 EACH IV SCH ×3 (09:30→17:27)
--- NOTE | 2017-03-08 09:52 | General Surgery Consult Note ---
Assessment and Plan (1) CKD (chronic kidney disease) stage 5, GFR less than 15 ml/min Status: Acute Assessment and plan: Patient with acute renal failure progressed to end-stage renal disease requiring hemodialysis. We have discussed the indications for a tunneled hemodialysis catheter placement today including the risks. Risks reviewed including but not limited to infection, bleeding, blood vessel injury, nerve injury, lung injury, blood infection, and other potentially unforeseeable cardiac, pulmonary and/or neurologic events. The patient and his family who are present expressed understanding of these risks but expressed understanding of the benefits to proceed with hemodialysis for improvement in his medical condition. We will proceed with a tunneled hemodialysis catheter placement today. Current Visit: Yes History of Present Illness Chief complaint: ESRD History of present illness: Mr. Dunn is a 26 year old male Patient is a 26-year-old male with untreated accelerated hypertension. This appears to have precipitated his renal failure and is currently recommended by nephrology gram to be placed on hemodialysis. We have been consulted for hemodialysis catheter placement. Patient has no history of trauma to the chest or upper extremities, and no history of a central line placement. Patient had significant leukocytosis on arrival which is gradually improving. There is currently no evidence of infection identified and the leukocytosis is resolving ; suspicion for stress reaction as etiology. Home Medications Medication Instructions Recorded Confirmed Type Aspirin EC Tab 81 mg PO DAILY 03/06/17 03/07/17 History amLODIPine [Norvasc] 5 mg PO QAM 03/06/17 03/07/17 History hydroCHLOROthiazide 12.5 mg PO QAM 03/06/17 03/07/17 History [Hydrochlorothiazide] Allergies Allergy/AdvReac Type Severity Reaction Status Date / Time No Known Allergies Allergy Unverified 03/06/17 13:30 Medical,Surgical,& Family Hx - Medical History Cardio: History of: Hypertension Renal: History of: Renal Failure - Surgical History Orthopedic Surgeries: Surgical HX of;: Orthopedic Surgery (ACL repair) - Family History Family History: Reports;: Family Diabetes (mom), Family Hypertension (mom) - Social History Smoking Status: Never smoker Frequency of Alcohol Use: None Type of Drug Use: None - Constitutional Constitutional: Absent: chills, fever(s) - Cardiovascular Cardiovascular: Absent: chest pain at rest, chest pain with activity - Respiratory Respiratory: Absent: cough, wheezing - Gastrointestinal Gastrointestinal: Absent: abdominal pain, nausea, vomiting - Musculoskeletal Musculoskeletal: Present: other (No rash or open wound). Absent: arthralgias Exam - Constitutional Vitals: Period Temp Pulse Resp BP Sys/Caldwell Pulse Ox Last 24 Hr 97.8 F-99.4 F 79-107 16-20 112-169/45-118 94-98 General appearance: no acute distress - Head Head exam: Present: normal inspection, normocephalic - Eye Eye exam: Absent: conjunctival injection, periorbital swelling, scleral icterus - Neck Neck exam: Present: trachea midline - Respiratory Respiratory exam: Present: clear to auscultation bilaterally - Cardiovascular Cardiovascular exam: Present: RRR - GI/Abdominal GI/Abdominal exam: Present: normal bowel sounds, soft. Absent: tenderness - Extremities Exam Extremities exam: Absent: calf tenderness, edema - Neurological Exam Neurological exam: Present: alert, oriented X3 Speech: Present: normal - Skin Skin exam: Present: normal color, warm. Absent: abrasion, rash Results - Labs CBC & BMP: 03/08/17 04:23 03/08/17 04:23 Labs: Preliminary blood cultures negative Preliminary urine culture negative Chest x-ray no acute processes
[2017-03-08] MEDS ORDERED: POTASSIUM CHLORIDE RIDER 20 MEQ in PREMIX 1 EACH IV ONE (10:00)
--- NOTE | 2017-03-08 10:12 | Hospitalist Progress Note ---
<Irineo Garcia - Last Filed: 03/08/17 10:10> Assessment and Plan (1) Leukocytosis Status: Acute Assessment and plan: WBCs were grossly elevated at 36.2. There is no obvious sign of infection. We will conduct a full workup, we will obtain hepatitis panel and HIV panel for review. We will obtain blood cultures 03/07-noted decrease in WBCs, white blood cell count noted at 25.7. No obvious sign of infection identified. Hepatitis screen and HIV panel both negative. Blood cultures and urine culture report no growth to date. This leukocytosis may be related to stress; however we will continue to monitor. 03/08-white blood cell count continued to decrease downward; noted at 20.8 today down from 25.7 on yesterday. No obvious signs of infection identified. Blood cultures reported no growth to date. Hepatitis screen and HIV panel both negative. I suspect that this is stress related however we will continue to monitor. Current Visit: Yes (2) Acute renal failure Status: Acute Assessment and plan: Gross elevation in BUN and creatinine noted at the time of encounter. BUN noted at 102 and creatinine noted at 14.40. We will consult nephrology to evaluate. 03/07-BUN and creatinine remain elevated at 106 and 13.7. We attempted to gently rehydrate on last night with no success. No signs or symptoms of uremia present. Multiple electrolyte deficits are noted: Sodium at 128 today potassium at 2.6 , chloride at 88 , anion gap at 23.6, carbon dioxide at 19; magnesium noted at 1.7, calcium noted at 5.6, GFR is noted at 6. I contacted nephrology spoke with Dr. Cabello; he is agreed to evaluate the patient this afternoon. We will monitor for signs and symptoms of uremia. Patient is in no obvious distress. We will obtain arterial blood gas to assess current acid base balance. We will await nephrology consultation for further direction. 03/08-BUN and creatinine remain grossly elevated at 112 and 13.3. GFR remains at 6; calcium improved to 6.7 .Evaluated by nephrology on yesterday. I agree with the plan to initiate hemodialysis after tunnel cath placement this morning. Current Visit: Yes (3) Essential (primary) hypertension Status: Acute Assessment and plan: Patient reports noncompliance with previous antihypertensive regimen. Spoke with patient in great detail regarding the need to adhere to the prescribed medication regimen. He acknowledges a understanding of the need and reports that he plans to be compliant in the future. 03/07-blood pressures remain relatively elevated. Systolic blood pressure has remained above 160. We will start hydralazine 50 mg 3 times daily and Coreg 25 mg twice daily. We will continue to monitor blood pressures very closely. I suspect that it would be very difficult to control this patient's blood pressures. 03/08-blood pressures were relatively stable overnight; systolic blood pressure was noted at 155 at the highest and diastolic blood pressure noted at 45 at the lowest. We will continue regimen as previously ordered. Current Visit: Yes (4) Hyponatremia Status: Acute Assessment and plan: Sodium noted at 125, we will consult nephrology to evaluate for correction. 03/07-sodium remains low at 128; awaiting nephrology consultation for further direction. Current Visit: Yes (5) Hypokalemia Status: Acute Assessment and plan: Potassium remains low noted at 2.6 at the time of admission remains at 2.6 today. Awaiting nephrology consultation to evaluate and adjust. Current Visit: Yes Hospitalist: Subjective Interval history: Patient seen and examined; chart reviewed. No significant overnight events. Blood pressures were well controlled on last night. Surgery consult for tunnel cath placement this a.m. Exam - Constitutional Vitals: Period Temp Pulse Resp BP Sys/Caldwell Pulse Ox Last 24 Hr 97.8 F-99.4 F 79-107 16-20 112-169/45-118 94-98 General appearance: normal weight, no acute distress - Head Head exam: Present: normal inspection, normocephalic - Eye Eye exam: Present: EOMI, conjunctival injection Pupils: Present: ANKITA, normal accommodation - ENT ENT exam: Present: normal exam, normal external ear exam, normal oropharynx - Neck Neck exam: Present: normal inspection. Absent: lymphadenopathy, meningismus, tenderness, thyromegaly - Respiratory Respiratory exam: Present: clear to auscultation bilaterally. Absent: rales, rhonchi, stridor, wheezes - Cardiovascular Cardiovascular exam: Present: bradycardia, regular rate and rhythm. Absent: carotid bruit, diastolic murmur, gallop, JVD, rubs, systolic murmur - GI/Abdominal GI/Abdominal exam: Present: normal bowel sounds, soft - Extremities Exam Extremities exam: Present: normal inspection, normal capillary refill, full ROM. Absent: edema - Back Exam Back exam: Present: normal inspection - Neurological Exam Neurological exam: Present: alert, oriented X3, CN II-XII intact - Psychiatric Psychiatric exam: Present: flat affect - Skin Skin exam: Present: normal color, warm, dry Results - Labs CBC & BMP: 03/08/17 04:23 03/08/17 04:23 Lab Results: I have reviewed the past 24 hour labs <Chelly Longoria - Last Filed: 03/08/17 13:35> Hospitalist: Subjective Interval history: Blood cultures and Urine cultures are negative Exam - Constitutional Vitals: Period Temp Pulse Resp BP Sys/Caldwell Pulse Ox Last 24 Hr 97.8 F-99.4 F 79-107 16-20 112-155/45-85 93-98 Results - Labs CBC & BMP: 03/08/17 04:23 03/08/17 04:23
[2017-03-08] MEDS ORDERED: HEPARIN 5,000 UNIT/1 ML VIAL ONE (12:15)
--- NOTE | 2017-03-08 13:18 | XRay Report ---
Portable chest Date: 03/08/2017 Clinical history: Central line placement Comparison: 03/06/2017 Technique: Portable AP sitting chest Findings: The heart is minimally enlarged. Insertion of double-lumen venous catheter in the right internal jugular vein with tip at junction of SVC and right atrium. No evidence of pneumothorax. Minimal edema/atelectasis. Stable mediastinum and osseous structures. Impression: Insertion of right IJ venous catheter with tip at junction of SVC and right atrium. No evidence pneumothorax. The heart is larger in size with minimal edema/atelectasis especially at the lung bases. PROCEDURE INTERPRETED AT [facility] DEPARTMENT OF RADIOLOGY Final Report Signed by: Dr. Elisha De La Garza
--- NOTE | 2017-03-08 13:42 | Operative Note ---
Date of procedure: 03/08/17 Pre-op diagnosis: Renal failure Post-op diagnosis: same Procedure: Procedure performed: Placement of right internal jugular temporary hemodialysis catheter Procedure in detail: After informed consent was obtained patient was brought to the PACU and laid supine. He was placed in Trendelenburg position the right neck and chest prepped and draped in usual sterile fashion. Ultrasound was brought over through a sterile sleeve cover. After procedural pause ultrasound of the right neck performed and the internal jugular vein appeared patent and compressible. Right internal jugular vein was then accessed using an 18-gauge Seldinger needle under ultrasound guidance on the first attempt. There is return of nonpulsatile dark red blood. Guidewire inserted without resistance. Small incision made around the guidewire and the tract was dilated and an non- cuffed hemodialysis catheter was then placed over the guidewire using Seldinger technique. The guidewire was removed. All ports withdrew and flushed easily and were locked with heparinized saline. Catheter was secured in place with 2- 0 silk suture. Sterile dressings applied and patient tolerated the procedure well. There is good hemostasis. Anesthesia: local Surgeon / Physician: Florentin Bryan Estimated blood loss: other (Less than 10 cc) Specimens: none sent Condition: stable Disposition: PACU Results - Labs CBC & BMP: 03/08/17 04:23 03/08/17 04:23 Discharge Plan - Discharge Medications No Action amLODIPine [Norvasc] 5 mg PO QAM Aspirin EC Tab 81 mg PO DAILY hydroCHLOROthiazide [Hydrochlorothiazide] 12.5 mg PO QAM - Follow Up or Referral - Forms/Instructions
--- NOTE | 2017-03-08 13:44 | Dialysis Note ---
Dialysis Note - Dialysis Note Mr. Dunn is seen during hemodialysis. His dialysis catheter is in good position by chest x-ray. He is doing well we will plan to dialyze today for 2-1 /2 hours and will dialyze tomorrow for approximately 3-3-1/2 hours. He will need a tunneled dialysis catheter down the road. We appreciate Dr. Reich's placement of this temporary catheter.
[2017-03-08] MEDS ORDERED: HEPARIN 10,000 UNIT/10 ML VIAL IV SCH (16:00)
[2017-03-08] MEDS: ACETAMINOPHEN 325 MG TABLET PO PRN (17:06)
[2017-03-08] MEDS: ALPRAZolam 0.5 MG TABLET PO SCH (20:26)
[2017-03-09 05:46] LABS: Basophils % 0.2 % (0.0-0.8); Eosinophils # 0.2 10*3/uL (0.0-0.87); Eosinophils % 1.5 % (0.00-10.9); Hemoglobin 8.9 GM/DL (14.0-18.0); Immature Granulocytes % 0.6 %; Immature Granulocytes Absolute 0.08 #; Lymphocytes # 1.2 10*3/uL (1.4-4.0); Lymphocytes % 9.4 % (21.2-54.2); Mean Corpuscular HGB Conc 35.6 GM/DL (32-36); Mean Corpuscular Hemoglobin 27 PG (27-34); Mean Corpuscular Volume 76.5 FL (87-102); Mean Platelet Volume 11.5 FL (9.6-12.0); Monocytes # 1.1 10*3/uL (0.11-0.8); Monocytes % 8.3 % (1.7-12.7); Neutrophils # 10.1 10*3/uL (1.4-7.4); Platelet Count 257 T/CUMM (130-400); Red Blood Count 3.27 MC/CUMM (3.8-5.5); Red Cell Distribution Width 15.4 % (9.3-17.3); White Blood Count 12.7 T/CUMM (4-12)
[2017-03-09 06:42] LABS: Alanine Aminotransferase 18 U/L (16-61); Alkaline Phosphatase 73 U/L (45-117); Aspartate Amino Transferase 19 U/L (0-37); Bilirubin,Total < 0.39 MG/DL (0.2-1.0); Blood Urea Nitrogen 86 MG/DL (7-18); Glucose 96 MG/DL (74-106); Magnesium 2.2 MG/DL (1.8-2.4); Osmolality,Calculated 291.4 MOS/KG (273-304); Phosphorous 8.2 MG/DL (2.5-4.9); Potassium 2.7 MMOL/L (3.5-5.1); Sodium 133 MMOL/L (136-145); Total Protein 4.7 G/DL (6.4-8.3)
[2017-03-09] MEDS: PANTOPRAZOLE 40 MG TABLET PO SCH (08:31)
[2017-03-09] MEDS: CARVEDILOL 25 MG TABLET PO SCH ×2 (08:31→20:58)
[2017-03-09] MEDS: amLODIPine 5 MG TABLET PO SCH ×2 (08:31→20:59)
[2017-03-09] MEDS: ASPIRIN EC 81 MG TABLET PO SCH (08:31)
[2017-03-09] MEDS: ATORVASTATIN 10 MG TABLET PO SCH (08:31)
[2017-03-09] MEDS: CALCIUM CARBONATE CHEW 500 MG TABLET PO SCH ×4 (08:31→20:58)
--- NOTE | 2017-03-09 09:21 | Dialysis Note ---
Dialysis Note - Dialysis Note Mr. Torres is seen during his hemodialysis. We will be dialyzing approximately 3-1/2 hours today. He tolerated yesterday's dialysis well and is tolerating today's well. Serum calcium is increased as would be expected. We are not lowering his potassium with dialysis. we're using a 3.0 potassium bath. His blood pressure is now fairly well controlled and I think we should use only one calcium channel ashvin so will discontinue the nifedipine and continue the amlodipine. Our plan is to dialyze him again tomorrow and then anticipate placement of a tunneled dialysis catheter at the first of the week then hopefully could be managed as an outpatient
--- NOTE | 2017-03-09 12:52 | Event Note ---
The patient is postop day #1 status post non-tunneled hemodialysis catheter placement. The line was used for access today and is currently being used during my interview. Patient has no complaints Afebrile Catheter is being used for hemodialysis. No local evidence of bleeding or hematoma formation. Distally there is no edema of the right upper extremity. Radial and ulnar pulses are palpable. Assessment and plan The patient is postop day 1 status post non-tunneled hemodialysis catheter placement. This is a temporary measure. He will require tunnel placement in the near future. Hopefully, we can accomplish this prior to his discharge.
--- NOTE | 2017-03-09 13:02 | Hospitalist Progress Note ---
<Irineo Garcia - Last Filed: 03/09/17 12:59> Assessment and Plan (1) Leukocytosis Status: Acute Assessment and plan: WBCs were grossly elevated at 36.2. There is no obvious sign of infection. We will conduct a full workup, we will obtain hepatitis panel and HIV panel for review. We will obtain blood cultures 03/07-noted decrease in WBCs, white blood cell count noted at 25.7. No obvious sign of infection identified. Hepatitis screen and HIV panel both negative. Blood cultures and urine culture report no growth to date. This leukocytosis may be related to stress; however we will continue to monitor. 03/08-white blood cell count continued to decrease downward; noted at 20.8 today down from 25.7 on yesterday. No obvious signs of infection identified. Blood cultures reported no growth to date. Hepatitis screen and HIV panel both negative. I suspect that this is stress related however we will continue to monitor. 03/09-white blood cell count noted at 12.7 today this is a great improvement from 20.8 on yesterday and 25.7 at admission. Feel that this was largely attributed to stress. Blood cultures reported no growth to date and no obvious signs of infection were ever identified. Current Visit: Yes (2) Acute renal failure Status: Acute Assessment and plan: Gross elevation in BUN and creatinine noted at the time of encounter. BUN noted at 102 and creatinine noted at 14.40. We will consult nephrology to evaluate. 03/07-BUN and creatinine remain elevated at 106 and 13.7. We attempted to gently rehydrate on last night with no success. No signs or symptoms of uremia present. Multiple electrolyte deficits are noted: Sodium at 128 today potassium at 2.6 , chloride at 88 , anion gap at 23.6, carbon dioxide at 19; magnesium noted at 1.7, calcium noted at 5.6, GFR is noted at 6. I contacted nephrology spoke with Dr. Cabello; he is agreed to evaluate the patient this afternoon. We will monitor for signs and symptoms of uremia. Patient is in no obvious distress. We will obtain arterial blood gas to assess current acid base balance. We will await nephrology consultation for further direction. 03/08-BUN and creatinine remain grossly elevated at 112 and 13.3. GFR remains at 6; calcium improved to 6.7 .Evaluated by nephrology on yesterday. I agree with the plan to initiate hemodialysis after tunnel cath placement this morning. 16-BUN and creatinine noted at 86 and 10.60. GFR improved to 8. Hemodialysis was initiated on yesterday after tunnel cath placement. I agree with nephrology's recommendations to continue hemodialysis and follow-up for permanent cath placement for outpatient HD. Current Visit: Yes (3) Essential (primary) hypertension Status: Acute Assessment and plan: Patient reports noncompliance with previous antihypertensive regimen. Spoke with patient in great detail regarding the need to adhere to the prescribed medication regimen. He acknowledges a understanding of the need and reports that he plans to be compliant in the future. 03/07-blood pressures remain relatively elevated. Systolic blood pressure has remained above 160. We will start hydralazine 50 mg 3 times daily and Coreg 25 mg twice daily. We will continue to monitor blood pressures very closely. I suspect that it would be very difficult to control this patient's blood pressures. 03/08-blood pressures were relatively stable overnight; systolic blood pressure was noted at 155 at the highest and diastolic blood pressure noted at 45 at the lowest. We will continue regimen as previously ordered. 03/09-blood pressures have markedly improved; since the initiation of hemodialysis. I agree with nephrology's recommendation to discontinue nifedipine and continue amlodipine. We will monitor blood pressures very closely. Current Visit: Yes (4) Hyponatremia Status: Acute Assessment and plan: Sodium noted at 125, we will consult nephrology to evaluate for correction. 03/07-sodium remains low at 128; awaiting nephrology consultation for further direction. Current Visit: Yes (5) Hypokalemia Status: Acute Assessment and plan: Potassium remains low noted at 2.6 at the time of admission remains at 2.6 today. Awaiting nephrology consultation to evaluate and adjust. 03/09-potassium noted at 2.7. Nephrology to manage. Current Visit: Yes Hospitalist: Subjective Interval history: Patient seen and examined; no significant overnight events. Hemodialysis initiated on yesterday after vascular cath placement. Agree with nephrology's plan to continue hemodialysis today blood pressure looks better. We will monitor. Exam - Constitutional Vitals: Period Temp Pulse Resp BP Sys/Caldwell Pulse Ox Last 24 Hr 97.7 F-98.9 F 80-98 16-20 121-151/71-93 93-100 General appearance: normal weight, no acute distress - Head Head exam: Present: normal inspection, normocephalic - Eye Eye exam: Present: EOMI. Absent: conjunctival injection Pupils: Present: ANKITA, normal accommodation - ENT ENT exam: Present: normal exam, normal external ear exam, normal oropharynx - Neck Neck exam: Present: normal inspection. Absent: lymphadenopathy, meningismus, tenderness, thyromegaly - Respiratory Respiratory exam: Present: clear to auscultation bilaterally. Absent: accessory muscle use, chest wall tenderness, decreased breath sounds, prolonged expiratory phase, rales, rhonchi, stridor, wheezes - Cardiovascular Cardiovascular exam: Present: regular rate and rhythm. Absent: carotid bruit, diastolic murmur, gallop, JVD, rubs - GI/Abdominal GI/Abdominal exam: Present: normal bowel sounds. Absent: rebound, soft - Extremities Exam Extremities exam: Present: normal inspection, normal capillary refill, full ROM. Absent: edema - Back Exam Back exam: Present: normal inspection - Neurological Exam Neurological exam: Present: alert, oriented X3, CN II-XII intact - Psychiatric Psychiatric exam: Present: normal affect, normal mood - Skin Skin exam: Present: normal color, warm, dry Results - Labs CBC & BMP: 03/09/17 04:20 03/09/17 04:20 Lab Results: I have reviewed the past 24 hour labs <Chelly Longoria - Last Filed: 03/09/17 16:19> Hospitalist: Subjective Interval history: Patient had another session of dialysis today, blood pressure is under control Exam - Constitutional Vitals: Period Temp Pulse Resp BP Sys/Caldwell Pulse Ox Last 24 Hr 97.7 F-98.5 F 80-98 16-20 121-149/71-93 94-97 Results - Labs CBC & BMP: 03/09/17 04:20 03/09/17 04:20
[2017-03-09] MEDS: ALPRAZolam 0.5 MG TABLET PO SCH (20:58)
[2017-03-09] MEDS: ACETAMINOPHEN 325 MG TABLET PO PRN (20:58)
[2017-03-10] MEDS: CALCIUM CARBONATE CHEW 500 MG TABLET PO SCH ×4 (07:52→20:54)
[2017-03-10] MEDS: PANTOPRAZOLE 40 MG TABLET PO SCH (07:52)
[2017-03-10] MEDS: amLODIPine 5 MG TABLET PO SCH ×2 (07:53→20:55)
[2017-03-10] MEDS: CARVEDILOL 25 MG TABLET PO SCH ×2 (07:53→20:55)
[2017-03-10] MEDS: ATORVASTATIN 10 MG TABLET PO SCH (07:53)
[2017-03-10] MEDS: ASPIRIN EC 81 MG TABLET PO SCH (07:54)
[2017-03-10 08:32] LABS: Basophils % 0.2 % (0.0-0.8); Eosinophils # 0.3 10*3/uL (0.0-0.87); Hematocrit 26.8 VOL% (42.0-52.0); Hemoglobin 9.4 GM/DL (14.0-18.0); Immature Granulocytes % 0.8 %; Immature Granulocytes Absolute 0.11 #; Lymphocytes # 2.2 10*3/uL (1.4-4.0); Lymphocytes % 14.8 % (21.2-54.2); Mean Corpuscular HGB Conc 35.1 GM/DL (32-36); Mean Corpuscular Hemoglobin 28 PG (27-34); Mean Corpuscular Volume 79.3 FL (87-102); Mean Platelet Volume 11.3 FL (9.6-12.0); Monocytes # 1.7 10*3/uL (0.11-0.8); Monocytes % 11.3 % (1.7-12.7); Neutrophils # 10.4 10*3/uL (1.4-7.4); Neutrophils % 70.9 % (38.7-73.9); Platelet Count 325 T/CUMM (130-400); Red Blood Count 3.38 MC/CUMM (3.8-5.5); Red Cell Distribution Width 15.3 % (9.3-17.3); White Blood Count 14.6 T/CUMM (4-12)
--- NOTE | 2017-03-10 08:53 | Dialysis Note ---
Dialysis Note - Dialysis Note Patient is seen on dialysis. He is tolerating the procedure. Blood pressure 135/76.
[2017-03-10 08:58] LABS: Alanine Aminotransferase 23 U/L (16-61); Albumin 2.1 G/DL (3.4-5.0); Alkaline Phosphatase 73 U/L (45-117); Aspartate Amino Transferase 22 U/L (0-37); Bilirubin,Total < 0.39 MG/DL (0.2-1.0); Blood Urea Nitrogen 60 MG/DL (7-18); Calcium 7.5 MG/DL (8.5-10.1); Glucose 85 MG/DL (74-106); Osmolality,Calculated 285.1 MOS/KG (273-304); Phosphorous 6.6 MG/DL (2.5-4.9); Potassium 2.7 MMOL/L (3.5-5.1); Sodium 135 MMOL/L (136-145)
--- NOTE | 2017-03-10 15:47 | Hospitalist Progress Note ---
<Priscilla Fiore - Last Filed: 03/10/17 16:11> Assessment and Plan (1) Acute renal failure Status: Acute Assessment and plan: Patient received third treatment of dialysis today. Nephrology following. Bun/ creatinine improved today to 60/8.50 (respectively). Current Visit: Yes (2) CKD (chronic kidney disease) stage 5, GFR less than 15 ml/min Status: Acute Current Visit: Yes (3) Essential (primary) hypertension Status: Acute Assessment and plan: Pt's blood pressures have been stable. Pt. is currently on Amlodipine, Coreg, hydralazine, and clonidine. Current Visit: Yes (4) Hypokalemia Status: Acute Assessment and plan: Pt.'s K remains low today at 2.7. Will attempt replacement. Current Visit: Yes (5) Hyponatremia Status: Acute Assessment and plan: Pt. 135 today. Level slowly improving with dialysis treatment. Current Visit: Yes (6) Leukocytosis Status: Acute Assessment and plan: Patient's white blood count today is 14.6 which is an increase from yesterday's count of 12.7 but is decreased from admission level of 36.2. Blood cultures negative. No apparent signs of infection noted. Continue to monitor CBC. Current Visit: Yes Hospitalist: Subjective Interval history: Pt. seen and examined. No apparent distress noted. Pt. resting after dialysis session. Family at bedside. Denies needs at this time. Exam - Constitutional Vitals: Period Temp Pulse Resp BP Sys/Caldwell Pulse Ox Last 24 Hr 97.9 F-100.2 F 78-92 18-22 109-137/57-74 91-98 General appearance: no acute distress - Head Head exam: Present: normal inspection, normocephalic - Eye Eye exam: Present: EOMI. Absent: periorbital swelling Pupils: Present: ANKITA. Absent: fixed - Neck Neck exam: Present: normal inspection. Absent: thyromegaly - Respiratory Respiratory exam: Present: clear to auscultation bilaterally - Cardiovascular Cardiovascular exam: Present: regular rate and rhythm - GI/Abdominal GI/Abdominal exam: Present: normal bowel sounds, soft. Absent: tenderness - Extremities Exam Extremities exam: Present: normal capillary refill, full ROM. Absent: edema - Neurological Exam Neurological exam: Present: alert, oriented X3 - Psychiatric Psychiatric exam: Present: normal affect, normal mood - Skin Skin exam: Present: normal color, warm, dry Results - Labs CBC & BMP: 03/10/17 05:45 03/10/17 05:45 Lab Results: I have reviewed the past 24 hour labs <Chelly Longoria - Last Filed: 03/10/17 19:22> Exam - Constitutional Vitals: Period Temp Pulse Resp BP Sys/Caldwell Pulse Ox Last 24 Hr 97.7 F-100.2 F 78-92 18-22 109-137/59-74 91-98 Results - Labs CBC & BMP: 03/10/17 05:45 03/10/17 05:45
[2017-03-10] MEDS: ACETAMINOPHEN 325 MG TABLET PO PRN (20:55)
[2017-03-10] MEDS: ALPRAZolam 0.5 MG TABLET PO SCH (20:55)
--- NOTE | 2017-03-11 09:20 | Nephrology Progress Note ---
Nephrology - PN: Subj Interval history: The gentleman is resting comfortably voices no complaints. Tolerated dialysis on yesterday. Exam (PN)-Nephrology - Vital Signs Vital signs: Period Temp Pulse Resp BP Sys/Caldwell Pulse Ox Last 24 Hr 97.7 F-99.2 F 80-90 16-22 121-137/67-77 94-100 - General Appearance General appearance: well-developed, well-nourished EENT: ATNC Neck: supple Respiratory: clear Cardiology: regular rate, regular rhythm Gastrointestinal: normoactive bowel sounds, no tenderness Integumentary: no rash Neurologic: alert and oriented x3, CN 3-12 intact Musculoskeletal: no clubbing Psychiatric: mood/affect appropriate, cooperative - Lab 03/10/17 05:45 03/10/17 05:45 Most recent lab results ABG pH 7.378 (7.35-7.45) 03/07/17 11:47 ABG pCO2 27.0 MM HG (35-48) L 03/07/17 11:47 ABG pO2 88.4 MM HG (80-95) 03/07/17 11:47 ABG HCO3 18.0 MMOL/L (20-26) L 03/07/17 11:47 ABG O2 Saturation 95.7 % (95-100) 03/07/17 11:47 Calcium 7.5 MG/DL (8.5-10.1) L 03/10/17 05:45 Phosphorus 6.6 MG/DL (2.5-4.9) H 03/10/17 05:45 Magnesium 2.0 MG/DL (1.8-2.4) 03/10/17 05:45 Assessment and Plan (1) End stage renal disease Status: Chronic Current Visit: Yes (2) Essential (primary) hypertension Status: Chronic Current Visit: Yes
[2017-03-11] MEDS: ATORVASTATIN 10 MG TABLET PO SCH (09:35)
[2017-03-11] MEDS: CALCIUM CARBONATE CHEW 500 MG TABLET PO SCH ×4 (09:35→20:22)
[2017-03-11] MEDS: PANTOPRAZOLE 40 MG TABLET PO SCH (09:35)
[2017-03-11] MEDS: ASPIRIN EC 81 MG TABLET PO SCH (09:36)
[2017-03-11] MEDS: amLODIPine 5 MG TABLET PO SCH ×2 (09:36→20:23)
[2017-03-11] MEDS: POTASSIUM CHLORIDE 20 MEQ TABLET PO SCH ×2 (09:36→20:23)
[2017-03-11] MEDS: CARVEDILOL 25 MG TABLET PO SCH ×2 (09:36→20:22)
[2017-03-11 10:44] LABS: Basophils % 0.2 % (0.0-0.8); Eosinophils # 0.4 10*3/uL (0.0-0.87); Eosinophils % 2.3 % (0.00-10.9); Hemoglobin 9.9 GM/DL (14.0-18.0); Immature Granulocytes % 0.7 %; Immature Granulocytes Absolute 0.11 #; Lymphocytes # 1.7 10*3/uL (1.4-4.0); Lymphocytes % 10.8 % (21.2-54.2); Mean Corpuscular HGB Conc 34.1 GM/DL (32-36); Mean Corpuscular Hemoglobin 27 PG (27-34); Mean Corpuscular Volume 80.1 FL (87-102); Mean Platelet Volume 9.8 FL (9.6-12.0); Monocytes # 1.5 10*3/uL (0.11-0.8); Monocytes % 9.6 % (1.7-12.7); Neutrophils # 12.2 10*3/uL (1.4-7.4); Neutrophils % 76.4 % (38.7-73.9); Platelet Count 393 T/CUMM (130-400); Red Blood Count 3.62 MC/CUMM (3.8-5.5); Red Cell Distribution Width 15.5 % (9.3-17.3); White Blood Count 15.9 T/CUMM (4-12)
[2017-03-11 11:41] LABS: Calcium 8.1 MG/DL (8.5-10.1); Magnesium 2.1 MG/DL (1.8-2.4); Osmolality,Calculated 288.5 MOS/KG (273-304); Potassium 2.8 MMOL/L (3.5-5.1)
--- NOTE | 2017-03-11 13:21 | Hospitalist Progress Note ---
<Priscilla Fiore - Last Filed: 03/11/17 13:18> Assessment and Plan (1) Acute renal failure Status: Acute Assessment and plan: Patient received third treatment of dialysis today. Nephrology following. Bun/ creatinine improved today to 60/8.50 (respectively). 03/11 bun/creatinine 40/7.70 Current Visit: Yes (2) CKD (chronic kidney disease) stage 5, GFR less than 15 ml/min Status: Acute Current Visit: Yes (3) Essential (primary) hypertension Status: Chronic Assessment and plan: Pt's blood pressures have been stable. Pt. is currently on Amlodipine, Coreg, hydralazine, and clonidine. Current Visit: Yes (4) Hypokalemia Status: Acute Assessment and plan: Pt.'s K remains low today at 2.7. Will attempt replacement. 03/11 2.8 po potassium scheduled for patient. Current Visit: Yes (5) Hyponatremia Status: Acute Assessment and plan: Pt. 135 today. Level slowly improving with dialysis treatment. 03/11 Na 139 Current Visit: Yes (6) Leukocytosis Status: Acute Assessment and plan: Patient's white blood count today is 14.6 which is an increase from yesterday's count of 12.7 but is decreased from admission level of 36.2. Blood cultures negative. No apparent signs of infection noted. Continue to monitor CBC. 03/11 Pt's white count has increased to 15.9. Current Visit: Yes Hospitalist: Subjective Interval history: Pt seen and examined. Pt. resting comfortablly. Family at bedside. No changes. Pt. denies any issues at this time. Exam - Constitutional Vitals: Period Temp Pulse Resp BP Sys/Caldwell Pulse Ox Last 24 Hr 97.9 F-99.2 F 80-90 16-22 124-138/67-83 94-100 General appearance: no acute distress, over weight - Head Head exam: Present: normal inspection, normocephalic - Eye Eye exam: Present: EOMI. Absent: scleral icterus Pupils: Present: ANKITA - Neck Neck exam: Present: normal inspection. Absent: thyromegaly - Respiratory Respiratory exam: Present: clear to auscultation bilaterally. Absent: wheezes - Cardiovascular Cardiovascular exam: Present: regular rate and rhythm - GI/Abdominal GI/Abdominal exam: Present: normal bowel sounds, soft. Absent: tenderness - Extremities Exam Extremities exam: Present: normal capillary refill, full ROM. Absent: edema - Neurological Exam Neurological exam: Present: alert, oriented X3 - Psychiatric Psychiatric exam: Present: normal affect, normal mood - Skin Skin exam: Present: normal color, warm, dry Results - Labs CBC & BMP: 03/11/17 10:18 03/11/17 10:18 Lab Results: I have reviewed the past 24 hour labs <Chelly Longoria - Last Filed: 03/11/17 13:52> Hospitalist: Subjective Interval history: We will continue to replete potassium and discuss with Nephrology on dialysis dc plan for an access. Exam - Constitutional Vitals: Period Temp Pulse Resp BP Sys/Caldwell Pulse Ox Last 24 Hr 97.9 F-99.2 F 80-90 16-22 124-138/67-83 94-100 Results - Labs CBC & BMP: 03/11/17 10:18 03/11/17 10:18
[2017-03-11] MEDS: ALPRAZolam 0.5 MG TABLET PO SCH (20:22)
[2017-03-12 05:48] LABS: Basophils % 0.2 % (0.0-0.8); Eosinophils # 0.4 10*3/uL (0.0-0.87); Eosinophils % 2.2 % (0.00-10.9); Hematocrit 27.3 VOL% (42.0-52.0); Hemoglobin 8.9 GM/DL (14.0-18.0); Immature Granulocytes % 0.8 %; Immature Granulocytes Absolute 0.14 #; Lymphocytes # 2.1 10*3/uL (1.4-4.0); Lymphocytes % 12.1 % (21.2-54.2); Mean Corpuscular HGB Conc 32.6 GM/DL (32-36); Mean Corpuscular Hemoglobin 27 PG (27-34); Mean Corpuscular Volume 82.2 FL (87-102); Mean Platelet Volume 9.9 FL (9.6-12.0); Monocytes # 1.5 10*3/uL (0.11-0.8); Monocytes % 8.9 % (1.7-12.7); Neutrophils # 12.8 10*3/uL (1.4-7.4); Neutrophils % 75.8 % (38.7-73.9); Platelet Count 411 T/CUMM (130-400); Red Blood Count 3.32 MC/CUMM (3.8-5.5); Red Cell Distribution Width 14.9 % (9.3-17.3); White Blood Count 16.9 T/CUMM (4-12)
[2017-03-12 06:10] LABS: Magnesium 2.1 MG/DL (1.8-2.4); Osmolality,Calculated 292.3 MOS/KG (273-304); Potassium 3.3 MMOL/L (3.5-5.1)
[2017-03-12] MEDS: CARVEDILOL 25 MG TABLET PO SCH ×2 (08:11→17:47)
[2017-03-12] MEDS: ATORVASTATIN 10 MG TABLET PO SCH (08:11)
[2017-03-12] MEDS: POTASSIUM CHLORIDE 20 MEQ TABLET PO SCH (08:11)
[2017-03-12] MEDS: ASPIRIN EC 81 MG TABLET PO SCH (08:11)
[2017-03-12] MEDS: CALCIUM CARBONATE CHEW 500 MG TABLET PO SCH ×3 (08:11→16:14)
[2017-03-12] MEDS: PANTOPRAZOLE 40 MG TABLET PO SCH (08:12)
[2017-03-12] MEDS: amLODIPine 5 MG TABLET PO SCH ×2 (08:12→17:47)
--- NOTE | 2017-03-12 08:28 | Nephrology Progress Note ---
Nephrology - PN: Subj Interval history: Mr. Dunn is seen in follow-up of his end-stage renal disease. His blood pressure is well controlled and is well dialyzed. He needs his dialysis catheter changed to a tunnel catheter and Dr. Nakul RAZO will do that today. We appreciate his help. Patient is set up to be dialyzed [facility] on Sunday until a bed is available in [place]. We will dialyze either this afternoon or tomorrow and he should be able to go home after dialysis. Exam (PN)-Nephrology - Vital Signs Vital signs: Period Temp Pulse Resp BP Sys/Caldwell Pulse Ox Last 24 Hr 98.1 F-98.9 F 82-95 18-22 122-150/61-83 96-100 - Lab 03/12/17 04:24 03/12/17 04:24 Most recent lab results ABG pH 7.378 (7.35-7.45) 03/07/17 11:47 ABG pCO2 27.0 MM HG (35-48) L 03/07/17 11:47 ABG pO2 88.4 MM HG (80-95) 03/07/17 11:47 ABG HCO3 18.0 MMOL/L (20-26) L 03/07/17 11:47 ABG O2 Saturation 95.7 % (95-100) 03/07/17 11:47 Calcium 8.0 MG/DL (8.5-10.1) L 03/12/17 04:24 Phosphorus 6.6 MG/DL (2.5-4.9) H 03/10/17 05:45 Magnesium 2.1 MG/DL (1.8-2.4) 03/12/17 04:24 Assessment and Plan (1) CKD (chronic kidney disease) stage 5, GFR less than 15 ml/min Status: Acute Assessment and plan: Dialysis catheter placement, then begin hemodialysis Current Visit: Yes (2) Hypertension, accelerated Status: Acute Assessment and plan: Add Clonidine prn Current Visit: Yes (3) Anemia Status: Acute Assessment and plan: Likely due to CKD Current Visit: Yes
[2017-03-12] MEDS ORDERED: EPOETIN ALFA 2,000 UNIT/1 ML VIAL IV PRN (08:29)
--- NOTE | 2017-03-12 09:15 | Event Note ---
Placement of a tunneled hemodialysis catheter has been requested. The procedure and risks including infection, bleeding, blood clots, pneumothorax, injury to great vessels, etc. Have been discussed in detail and they wish to proceed.
--- NOTE | 2017-03-12 11:01 | Discharge Summary ---
<Priscilla Fiore - Last Filed: 03/12/17 10:45> Hospital Course - Hospital Course Hospital Course: Mr. Dunn is a 26-year-old black male patient with a history of hypertension who presented to the ED on 03/06 for evaluation of abnormal labs. Patient was seen in the local clinic for evaluation of hypertension after stating that he was not feeling well and labs were drawn at that time. Patient was noted to be noncompliant with hypertensive medications. He was notified by the nurse that he needed to present to the ED as soon as possible due to the lab values. Presentation patient was found to be hypertensive with a blood pressure noted 185/133. Patient also noted to have a WBC of 36.2, sodium of 125 , K was 2.6, BUN 102, creatinine 14.4, and calcium 5.9. Patient was admitted to the hospitalist service and nephrology was consulted to evaluate patient's renal function. Chest x-ray did not reveal any volume overload. Blood cultures and urine cultures were negative. Hepatitis panel and HIV panel were unremarkable. . Leukocytosis thought to be secondary to stress was monitored throughout the patient stay. His hypertension was treated with multiple meds and it is now better controlled. Patient was seen by nephrology and their impression was that the patient has ' advanced renal failure essentially end-stage renal disease but was free of uremic symptoms'. The plan was to control his blood pressure began hemodialysis to correct his metabolic issues. His hpokalemia and hyponatremia progressively improved. He had a 3session- daily dialysis with no problems. jordan worker has organized his outpt diaysis at [facility] for Mondays, Wednesdays and Fridays . On today, the patient will have a tunnel catheter placed by Dr. Mota and he will be released after dialysis. WBC today is 16.9 , Na 141, K 3.3, Bun 47, creatinine 8.90 Patient is to follow-up with any issues. Pt. encouraged to be compliant with medication and dialysis. Diagnosis - Discharge Diagnosis (1) Acute renal failure Status: Acute (2) CKD (chronic kidney disease) stage 5, GFR less than 15 ml/min Status: Acute (3) Essential (primary) hypertension Status: Chronic (4) Hypokalemia Status: Acute (5) Hyponatremia Status: Acute (6) Leukocytosis Status: Acute Discharge Plan - Discharge Data Disposition: Disch To Home/Self Care - Discharge Medications New ALPRAZolam [Xanax] 2 mg PO BEDTIME #20 tablet amLODIPine [Norvasc] 5 mg PO BID #60 tablet Atorvastatin [Lipitor] 10 mg PO DAILY #30 tablet Calcium Carbonate Chew [Tums] 2 tablet PO ACHS #120 tablet hydrALAZINE TAB [Apresoline Tab] 50 mg PO TID #90 tablet Pantoprazole Tab [Protonix Tab] 40 mg PO DAILY #30 tablet Potassium Chloride 20 meq PO DAILY #30 capsule Carvedilol [Coreg] 25 mg PO BID #60 tablet Continue hydroCHLOROthiazide [Hydrochlorothiazide] 12.5 mg PO QAM #30 Aspirin EC Tab 81 mg PO DAILY #30 Discontinued amLODIPine [Norvasc] 5 mg PO QAM - Follow Up or Referral - Forms/Instructions Exam - Constitutional Vitals: Period Temp Pulse Resp BP Sys/Caldwell Pulse Ox Last 24 Hr 98.1 F-98.9 F 82-95 18-22 122-150/61-83 96-100 Discharge Results Labs on day of discharge: Labs from last 24 hours 03/12/17 03/12/17 03/11/17 04:24 04:24 10:18 WBC 16.9 H RBC 3.32 L Hgb 8.9 L Hct 27.3 L MCV 82.2 L MCH 27 MCHC 32.6 RDW 14.9 Plt Count 411 H MPV 9.9 Neut % (Auto) 75.8 H Lymph % (Auto) 12.1 L Brewster % (Auto) 8.9 Eos % (Auto) 2.2 Baso % (Auto) 0.2 Neut # (Auto) 12.8 H Lymph # (Auto) 2.1 Brewster # (Auto) 1.5 H Eos # (Auto) 0.4 Baso # (Auto) 0.0 Immature Gran % 0.8 Nucleated RBC % 0.0 Immature Gran # 0.14 Nucleated RBCs # 0.00 Sodium 141 139 Potassium 3.3 L 2.8 L Chloride 102 100 Carbon Dioxide 24 23 Anion Gap 18.3 H 18.8 H BUN 47 H 40 H Creatinine 8.90 H 7.70 H GFR Calculation 10 12 BUN/Creatinine Ratio 5.00 L 5.00 L Glucose 100 133 H Calculated Osmolality 292.3 288.5 Calcium 8.0 L 8.1 L Magnesium 2.1 2.1 DS: Provider Date of admission: 03/06/17 15:01 Primary care physician: . No PCP Attending physician on admission: Damaris Feng MD Consults: 03/06/17 16:34 Consult to Case Mgmt/Social Srvs [CONS] Routine Reason for Case Mgmt/Social Srvs: Discharge Planning Consult to Physician [CONS] Routine Comment: new ESRD Consulting Provider: Kumar Wyatt Person Notified: Dr Wyatt independent marketing consultant notifed Date Notified: 03/07/17 Time Notified: 08:49 Consult Notification Comment: yes............ talk to Meet @10:20 on 03/07/17 13:34 Consult to Physician [CONS] Routine Comment: dialysis catheter placement Consulting Provider: Florentin Bryan When should Consulting Provider be notified: Now Person Notified: Dr. Bryan Date Notified: 03/07/17 Time Notified: 13:35 Consult Notification Comment: Dr. Wyatt spoke with Dr. Bryan's IMAN barnes 03/07/17 13:38 Consult to Case Mgmt/Social Srvs [CONS] Routine Reason for Case Mgmt/Social Srvs: Dialysis Consult Comment: new dialysis pt Discharging clinician: Priscilla Fiore NP <Chelly Longoria - Last Filed: 03/12/17 11:29> Hospital Course - Time spent with patient Time with patient DS: Greater than 30 minutes (Time >35mins) Diagnosis - Discharge Diagnosis (1) Hypokalemia Status: Acute (2) Hypertension, accelerated Status: Acute (3) Anemia Status: Acute (4) End stage renal disease Status: Chronic (5) Hyponatremia Status: Acute (6) Dyslipidemia Status: Acute Discharge Plan - Discharge Data Condition at Discharge: Stable Discharge Diet: heart healthy Activity: resume usual activities as tolerated - Forms/Instructions Additional Discharge Instructions: Follow with PCP in 1week and Nephrology as scheduled. For HD on //Sun Exam - Constitutional General appearance: no acute distress - Head Head exam: Present: normal inspection - Respiratory Respiratory exam: Present: clear to auscultation bilaterally - Cardiovascular Cardiovascular exam: Present: regular rate and rhythm - GI/Abdominal GI/Abdominal exam: Present: normal bowel sounds - Extremities Exam Extremities exam: Present: normal inspection - Neurological Exam Neurological exam: Present: alert, oriented X3
[2017-03-12] MEDS ORDERED: HEPARIN 5,000 UNIT/1 ML VIAL ONE (11:25)
[2017-03-12] MEDS ORDERED: SODIUM CHLORIDE 0.9% 250 ML IV SCH (11:30)
[2017-03-12] MEDS ORDERED: TISSUE ADHESIVE 1 EACH APPLICATOR TOP ONE (11:46)
[2017-03-12] MEDS ORDERED: BUPIVACAINE MPF 0.25% /EPI 30 ML VIAL ONE (11:46)
[2017-03-12] MEDS ORDERED: LIDOCAINE 1%/EPI INJ 20 ML VIAL ONE (11:46)
[2017-03-12] MEDS ORDERED: LIDOCAINE 2% 5 ML VIAL ONE (12:08)
[2017-03-12] MEDS ORDERED: LABETALOL 20 MG/4 ML SYRINGE IV ONE (12:08)
[2017-03-12] MEDS ORDERED: PROPOFOL 200 MG/20 ML VIAL IV ONE (12:08)
[2017-03-12] MEDS ORDERED: ceFAZolin 1,000 MG VIAL ONE (12:25)
--- NOTE | 2017-03-12 12:41 | Operative Note ---
Date of procedure: 03/12/17 Pre-op diagnosis: Chronic renal failure Post-op diagnosis: same Procedure: 23 cm tunneled hemodialysis catheter left internal jugular vein under ultrasound and fluoroscopic guidance Findings and technique: After informed consent was obtained the patient was brought the operating room and placed in supine position. After IV sedation was administered the patient's neck and chest was prepped and draped in usual sterile fashion. Local anesthesia was infiltrated and a sterile ultrasound probe placed over the left neck where the internal jugular vein was easily accessed and the guidewire advanced without resistance under fluoroscopy into the superior vena cava. Incision was made at the guidewire puncture site and a separate stab incision made beneath the left clavicle. Catheter was tunneled between the 2 incisions and an introducer sheath passed over the guidewire without resistance and the guidewire removed. Catheter was introduced in position with the tip in the midsuperior vena cava under fluoroscopy. The catheters were easily accessed aspirated and flushed. Incision the neck was closed interrupted 3-0 nylon suture and the catheter sutured to the skin. Following this the right internal jugular vein non-tunneled catheter was removed. Anesthesia: MAC, local Surgeon / Physician: Homer Mota III. Estimated blood loss: minimal Specimens: none sent Condition: stable Disposition: PACU Results - Labs CBC & BMP: 03/12/17 04:24 03/12/17 04:24 Discharge Plan - Discharge Data Disposition: Disch To Home/Self Care - Discharge Medications New ALPRAZolam [Xanax] 2 mg PO BEDTIME #20 tablet amLODIPine [Norvasc] 5 mg PO BID #60 tablet Atorvastatin [Lipitor] 10 mg PO DAILY #30 tablet Calcium Carbonate Chew [Tums] 2 tablet PO ACHS #120 tablet hydrALAZINE TAB [Apresoline Tab] 50 mg PO TID #90 tablet Pantoprazole Tab [Protonix Tab] 40 mg PO DAILY #30 tablet Potassium Chloride 20 meq PO DAILY #30 capsule Carvedilol [Coreg] 25 mg PO BID #60 tablet Continue hydroCHLOROthiazide [Hydrochlorothiazide] 12.5 mg PO QAM #30 Aspirin EC Tab 81 mg PO DAILY #30 Discontinued amLODIPine [Norvasc] 5 mg PO QAM - Follow Up or Referral - Forms/Instructions
[2017-03-12] MEDS ORDERED: hydrALAZINE 20 MG/1 ML VIAL ONE (12:52)
[2017-03-12] MEDS ORDERED: MIDAZOLAM 2 MG/2 ML VIAL ONE (12:59)
[2017-03-12] MEDS ORDERED: fentaNYL 100 MCG/2 ML VIAL ONE (12:59)
[2017-03-12] MEDS ORDERED: KETAMINE 500 MG/10 ML VIAL ONE (12:59)
[2017-03-12] MEDS ORDERED: hydrALAZINE 20 MG/1 ML VIAL IV ONE (13:00)
--- NOTE | 2017-03-12 13:25 | XRay Report ---
History: End-stage renal disease. Postop dialysis catheter placement Date: 03/12/2017 Study: Chest x-ray AP portable Comparison exam: March 08, 2017 A left upper extremity dialysis access catheter is well-positioned with its tip at the atriocaval junction. The right IJ central line has been removed. There is no evidence of a pneumothorax. The cardiac silhouette is upper normal in size. There is no mediastinal mass. The pulmonary vasculature is not engorged. The lungs and pleural spaces are clear. Osseous structures are unchanged. Impression: No evidence of pneumothorax following dialysis catheter placement on the left. The right IJ dialysis catheter has been removed PROCEDURE INTERPRETED AT [facility] DEPARTMENT OF RADIOLOGY Final Report Signed by: Dr. Teena Nuno
[2017-03-12 13:43] VITALS: BP 155/100
--- NOTE | 2017-03-12 13:48 | Anesthesia Post-Op ---
Anesthesia Post OP - Post Ansesthetic Evaluation Patient seen in post op: Yes Resp: within normal limits CV: within normal limits Mental: within normal limits Temp: within normal limits [id number]: within normal limits Nausea and Vomiting: within normal limits Pain: within normal limits
--- NOTE | 2017-03-12 13:56 | Dialysis Note ---
Dialysis Note - Dialysis Note Mr. Dunn is seen during hemodialysis. Using his new left tunneled dialysis catheter and is working well. He should be ready for discharge after dialysis and can be followed as scheduled at the [facility] until a bed is available and [place].
[2017-03-12] MEDS: ACETAMINOPHEN 325 MG TABLET PO PRN (18:24)
== END 2017-03-12 19:02 | disposition home or self-care (01) | DRG 683 ==
LOC: N.ED 13:02 → SUATTDRO 15:01 → N.EDINP 15:01 → N.5E 18:13
PROVIDERS: ADMIT Internal Medicine; ATTEND Internal Medicine